=== PATIENT | female | born 1950 | race Caucasian/White ===

== ENCOUNTER 2016-11-15 15:01 | Outpatient (CLI) | payer MEDICARE, OTHER | END 2016-11-15 15:02 | disposition home or self-care (01) | DX: R19.7 Diarrhea, unspecified (principal) ==

== ENCOUNTER 2016-11-19 16:00 | Outpatient (CLI) | payer MEDICARE, OTHER | END 2016-11-19 16:01 | disposition home or self-care (01) | DX: R79.9 Abnormal finding of blood chemistry, unspecified (principal); R74.8 Abnormal levels of other serum enzymes ==

== ENCOUNTER 2016-12-07 08:05 | Outpatient (CLI) | payer MEDICARE, OTHER | END 2016-12-07 08:06 | disposition home or self-care (01) | DX: K76.0 Fatty (change of) liver, not elsewhere classified (principal); Z90.49 Acquired absence of other specified parts of digestive tract ==

== ENCOUNTER 2016-12-26 15:52 | Outpatient (CLI) | payer MEDICARE, OTHER | END 2016-12-26 15:53 | disposition home or self-care (01) | DX: Z51.81 Encounter for therapeutic drug level monitoring (principal); E11.9 Type 2 diabetes mellitus without complications ==

== ENCOUNTER 2017-01-14 13:06 | Outpatient (CLI) | payer MEDICARE, OTHER | END 2017-01-14 13:07 | disposition home or self-care (01) | DX: G47.33 Obstructive sleep apnea (adult) (pediatric) (principal) | CPT/HCPCS: 99213; G0463 ==